=== PATIENT | female | born 1960 | race Caucasian/White ===

== ENCOUNTER 2017-09-26 18:11 | Inpatient (IN) | payer OTHER ==
[2017-09-26] MEDS ORDERED: ACETAMINOPHEN 325 MG TAB PO (19:30)
[2017-09-26] MEDS ORDERED: NACL 0.9% 3 ML SYG IV (19:30)
[2017-09-26] MEDS ORDERED: hydrALAzine 20 MG INJ IV (19:30)
[2017-09-26] MEDS ORDERED: VANCOMYCIN IV PER PHARMACY XX (19:30)
[2017-09-26] MEDS ORDERED: NITROGLYCERIN (SL) 0.4 MG TAB SL (19:30)
[2017-09-26] MEDS ORDERED: ALBUTEROL/IPRATROPIUM (NEB) 3 ML AMP HHN (19:30)
[2017-09-26] MEDS ORDERED: NA PHOSPHATE/BIPHOS 133 ML ENEMA PR (19:30)
[2017-09-26] MEDS: ONDANSETRON 4 MG INJ IV (20:25)
[2017-09-26] MEDS: SOD CHLORIDE 0.9% 1,000 ML IV (20:25)
[2017-09-26] MEDS: HEPARIN 5,000 UNIT/0.5 ML VIAL SC (20:27)
[2017-09-26] MEDS: HYDROCODONE/APAP (5/325) TAB PO (20:28)
[2017-09-26 20:38] LABS: INR 1.12; PROTIME 14.6 Sec (11.9-14.9); PT RATIO 1.1
[2017-09-26 20:39] LABS: PARTIAL THROMBOPLASTIN TIME 40.4 Sec (25.0-35.0)
[2017-09-26 20:52] LABS: FREE T4 (FREE THYROXINE) 1.15 ng/dl (0.64-1.79)
[2017-09-26] MEDS: VANCOMYCIN 1.5 GM in SOD CHLORIDE 0.9% 250 ML IVPB (23:17)
[2017-09-27] MEDS: PIPER-TAZO 3.375 GM IV (PMX) 100 ML IVPB ×4 (02:26→17:45)
[2017-09-27] MEDS ORDERED: VITAMIN A & D 5 GM OINT PACKET TOP (02:33)
[2017-09-27] MEDS: ONDANSETRON 4 MG INJ IV (02:36)
[2017-09-27] MEDS ORDERED: GLUCAGON 1 MG INJ IM (03:30)
[2017-09-27] MEDS ORDERED: GLUCOSE GEL 15 GRAM TUBE PO ×2 (03:30)
[2017-09-27] MEDS ORDERED: GLUCOSE GEL 15 GRAM TUBE BUCCAL (03:30)
[2017-09-27] MEDS ORDERED: DEXTROSE 50% 50 ML SYRINGE IV ×2 (03:30)
[2017-09-27] MEDS: SOD CHLORIDE 0.9% 1,000 ML IV ×2 (05:04→16:10)
[2017-09-27 05:40] LABS: ADD MAN DIFF? NO
[2017-09-27 05:45] LABS: BASOPHILS % 0.4 % (0.0-2.0); EOSINOPHILS % 0.4 % (0.0-7.0); HEMATOCRIT 30.7 % (37.0-47.0); HEMOGLOBIN 9.3 g/dl (12.0-16.0); LYMPHOCYTES % 14.3 % (15.0-51.0); MEAN CORPUSCULAR HEMOGLOBIN 22.6 pg (29.0-33.0); MEAN CORPUSCULAR HGB CONC 30.3 g/dl (32.0-37.0); MEAN CORPUSCULAR VOLUME 74.5 fl (82.0-101.0); MEAN PLATELET VOLUME 11.5 fl (7.4-10.4); MONOCYTE # 1.2 10^3/ul (0.3-0.9); MONOCYTES % 15.8 % (0.0-11.0); NEUTROPHILS % 68.8 % (39.0-77.0); PLATELET COUNT 221 10^3/UL (140-415); RED BLOOD COUNT 4.12 10^6/ul (4.20-5.40); RED CELL DISTRIBUTION WIDTH 17.9 % (11.5-14.5)
[2017-09-27 05:45] LABS: WHITE BLOOD COUNT 7.3 10^3/ul (4.8-10.8)
[2017-09-27 05:58] LABS: HEMOGLOBIN A1C 5.8 % (0-5.9)
[2017-09-27 06:06] LABS: ALANINE AMINOTRANSFERASE 148 IU/L (13-69); ALBUMIN 3.2 g/dl (3.3-4.9); ALKALINE PHOSPHATASE 200 IU/L (42-121); ANION GAP 14 (8-16); ASPARTATE AMINO TRANSFERASE 114 IU/L (15-46); BILIRUBIN,INDIRECT 0.1 mg/dl (0-1.1); BILIRUBIN,TOTAL 0.1 mg/dl (0.2-1.3); BLOOD UREA NITROGEN 7 mg/dl (7-20); CALCIUM 8.7 mg/dl (8.4-10.2); CARBON DIOXIDE 24 mmol/L (21-31); CHLORIDE 110 mmol/L (97-110); CHOL/HDL RATIO 3.2 RATIO; CHOLESTEROL 141 mg/dl (100-200); CREATININE 0.64 mg/dl (0.44-1.00); GLUCOSE 101 mg/dl (70-220); HDL CHOLESTEROL 44 mg/dl (37-92); LDL CHOLESTEROL,CALCULATED 73 mg/dl; PHOSPHORUS 3.3 mg/dl (2.5-4.9); SODIUM 144 mmol/L (135-144); TOTAL PROTEIN 6.1 g/dl (6.1-8.1); TRIGLYCERIDES 118 mg/dl (0-149)
[2017-09-27] MEDS: INSULIN ASPART [NOVOLOG] 3 ML PEN SC ×3 (08:00→17:45)
[2017-09-27] MEDS: HEPARIN 5,000 UNIT/0.5 ML VIAL SC ×2 (09:00→20:55)
[2017-09-27] MEDS: VANCOMYCIN 1 GM 250 ML IVPB ×2 (11:03→23:08)
[2017-09-27 18:58] LABS: HAAIG REFLEX REFLEX FILED
[2017-09-27 19:51] LABS: HEPATITIS B SURFACE ANTIGEN NEGATIVE (NEGATIVE)
[2017-09-27 20:10] LABS: HEPATITIS B CORE ANTIBODY NEGATIVE (NEGATIVE); HEPATITIS C VIRAL ANTIBODY NEGATIVE (NEGATIVE)
[2017-09-27] MEDS ORDERED: VANCOMYCIN 1.25 GM in SOD CHLORIDE 0.9% 250 ML IVPB (21:00)
[2017-09-27] MEDS: morphine 2 MG INJ IV (22:27)
[2017-09-27] MEDS: MAGNESIUM HYDROXIDE 30ML CUP PO (23:08)
[2017-09-28] MEDS: SOD CHLORIDE 0.9% 1,000 ML IV ×4 (01:04→21:04)
[2017-09-28] MEDS ORDERED: ACCU-CHEK XX (02:00)
[2017-09-28] MEDS: PIPER-TAZO 3.375 GM IV (PMX) 100 ML IVPB ×5 (02:27→18:20)
[2017-09-28] MEDS: DOCUSATE SODIUM 100 MG CAP PO (02:27)
[2017-09-28 05:50] LABS: ADD MAN DIFF? NO
[2017-09-28 05:57] LABS: WHITE BLOOD COUNT 5.4 10^3/ul (4.8-10.8)
[2017-09-28 05:57] LABS: BASOPHILS % 0.6 % (0.0-2.0); EOSINOPHILS # 0.1 10^3/ul (0.0-0.5); EOSINOPHILS % 1.5 % (0.0-7.0); HEMATOCRIT 29.9 % (37.0-47.0); LYMPHOCYTES # 1.3 10^3/ul (0.8-2.9); LYMPHOCYTES % 23.9 % (15.0-51.0); MEAN CORPUSCULAR HEMOGLOBIN 22.3 pg (29.0-33.0); MEAN CORPUSCULAR HGB CONC 30.1 g/dl (32.0-37.0); MEAN PLATELET VOLUME 11.2 fl (7.4-10.4); MONOCYTE # 1.1 10^3/ul (0.3-0.9); MONOCYTES % 19.3 % (0.0-11.0); NEUTROPHILS % 54.5 % (39.0-77.0); PLATELET COUNT 245 10^3/UL (140-415); RED BLOOD COUNT 4.04 10^6/ul (4.20-5.40)
[2017-09-28 06:21] LABS: IRON 45 ug/dl (35-150)
[2017-09-28 06:30] LABS: % IRON SATURATION 15 % SAT (22-52); TOTAL IRON BINDING CAPACITY 302 ug/dl (241-421)
[2017-09-28 06:52] LABS: ALANINE AMINOTRANSFERASE 133 IU/L (13-69); ALBUMIN 3.2 g/dl (3.3-4.9); ALBUMIN/GLOBULIN RATIO 1.06; ALKALINE PHOSPHATASE 241 IU/L (42-121); ANION GAP 12 (8-16); ASPARTATE AMINO TRANSFERASE 79 IU/L (15-46); BILIRUBIN,INDIRECT 0.2 mg/dl (0-1.1); BILIRUBIN,TOTAL 0.2 mg/dl (0.2-1.3); BLOOD UREA NITROGEN 11 mg/dl (7-20); CALCIUM 8.9 mg/dl (8.4-10.2); CARBON DIOXIDE 25 mmol/L (21-31); CHLORIDE 112 mmol/L (97-110); CREATININE 0.64 mg/dl (0.44-1.00); GLUCOSE 96 mg/dl (70-220); POTASSIUM 4.1 mmol/L (3.5-5.1); SODIUM 145 mmol/L (135-144); TOTAL PROTEIN 6.2 g/dl (6.1-8.1)
[2017-09-28 06:56] LABS: FERRITIN 15.5 ng/ml (11.1-264.0)
[2017-09-28] MEDS: HEPARIN 5,000 UNIT/0.5 ML VIAL SC ×2 (09:02→23:29)
[2017-09-28 11:11] LABS: VANCOMYCIN,TROUGH 9.1 ug/ml (10.0-20.0)
[2017-09-28] MEDS: VANCOMYCIN 1 GM 250 ML IVPB (11:59)
[2017-09-28] MEDS: morphine 2 MG INJ IV ×2 (12:09→17:14)
[2017-09-28] MEDS ORDERED: VITAMIN A & D 5 GM OINT PACKET TOP (15:38)
[2017-09-28 16:55] LABS: ACETAMINOPHEN < 10.0 ug/ml (10.0-30.0)
[2017-09-28] MEDS: LORAZEPAM 2 MG INJ IV (20:25)
[2017-09-28] MEDS: VANCOMYCIN 1.5 GM in SOD CHLORIDE 0.9% 250 ML IVPB (23:28)
[2017-09-29] MEDS: SOD CHLORIDE 0.9% 1,000 ML IV (03:29)
[2017-09-29] MEDS: DOCUSATE SODIUM 100 MG CAP PO (05:54)
[2017-09-29] MEDS: PIPER-TAZO 3.375 GM IV (PMX) 100 ML IVPB ×2 (05:54→11:27)
[2017-09-29 06:47] LABS: ADD MAN DIFF? NO
[2017-09-29 06:53] LABS: BASOPHIL # 0.1 10^3/ul (0.0-0.1); BASOPHILS % 0.8 % (0.0-2.0); EOSINOPHILS # 0.1 10^3/ul (0.0-0.5); EOSINOPHILS % 2.3 % (0.0-7.0); HEMATOCRIT 35.3 % (37.0-47.0); HEMOGLOBIN 10.5 g/dl (12.0-16.0); LYMPHOCYTES # 1.5 10^3/ul (0.8-2.9); LYMPHOCYTES % 24.9 % (15.0-51.0); MEAN CORPUSCULAR HEMOGLOBIN 22.2 pg (29.0-33.0); MEAN CORPUSCULAR HGB CONC 29.7 g/dl (32.0-37.0); MEAN CORPUSCULAR VOLUME 74.6 fl (82.0-101.0); MEAN PLATELET VOLUME 11.5 fl (7.4-10.4); MONOCYTE # 0.7 10^3/ul (0.3-0.9); MONOCYTES % 11.9 % (0.0-11.0); NEUTROPHIL # 3.7 10^3/ul (1.6-7.5); NEUTROPHILS % 59.8 % (39.0-77.0); PLATELET COUNT 327 10^3/UL (140-415); RED BLOOD COUNT 4.73 10^6/ul (4.20-5.40)
[2017-09-29 06:53] LABS: WHITE BLOOD COUNT 6.2 10^3/ul (4.8-10.8)
[2017-09-29 07:15] LABS: ALANINE AMINOTRANSFERASE 151 IU/L (13-69); ALBUMIN 3.8 g/dl (3.3-4.9); ALBUMIN/GLOBULIN RATIO 1.15; ALKALINE PHOSPHATASE 276 IU/L (42-121); ANION GAP 16 (8-16); ASPARTATE AMINO TRANSFERASE 94 IU/L (15-46); BILIRUBIN,INDIRECT 0.1 mg/dl (0-1.1); BILIRUBIN,TOTAL 0.1 mg/dl (0.2-1.3); BLOOD UREA NITROGEN 13 mg/dl (7-20); CALCIUM 9.9 mg/dl (8.4-10.2); CARBON DIOXIDE 27 mmol/L (21-31); CHLORIDE 107 mmol/L (97-110); CREATININE 0.57 mg/dl (0.44-1.00); GLUCOSE 98 mg/dl (70-220); SODIUM 146 mmol/L (135-144); TOTAL PROTEIN 7.1 g/dl (6.1-8.1)
[2017-09-29] MEDS: HEPARIN 5,000 UNIT/0.5 ML VIAL SC (09:10)
[2017-09-29] MEDS: VANCOMYCIN 1.5 GM in SOD CHLORIDE 0.9% 250 ML IVPB (12:08)
[2017-09-29] MEDS: ONDANSETRON 4 MG INJ IV (12:44)
[2017-09-29] MEDS: MAGNESIUM HYDROXIDE 30ML CUP PO (12:51)
[2017-09-29] MEDS ORDERED: VITAMIN A & D 5 GM OINT PACKET TOP (16:03)
== END 2017-09-29 16:23 | disposition home or self-care (01) | DRG 689 ==
LOC: PP2 18:11
PROVIDERS: Internal Medicine
DX: N39.0 Urinary tract infection, site not specified (principal); J18.9 Pneumonia, unspecified organism; D50.9 Iron deficiency anemia, unspecified; N81.4 Uterovaginal prolapse, unspecified; R74.0 Nonspecific elevation of levels of transaminase and lactic acid dehydrogenase [LDH]; Z90.5 Acquired absence of kidney
CPT/HCPCS: 74181; 80053; 80061; 80202; 80306; 82728; 82962; 83036; 83540; 83735; 84080; 84100; 84439; 84443; 85025; 85610; 85730; 86704; 86709; 86803; 87086; 87340

== ENCOUNTER 2017-10-05 15:51 | Outpatient (CLI) | payer OTHER | END 2017-10-05 17:00 | disposition home or self-care (01) | LOC: DCC 17:00 | DX: J18.9 Pneumonia, unspecified organism (principal); N39.0 Urinary tract infection, site not specified; D64.9 Anemia, unspecified; N81.4 Uterovaginal prolapse, unspecified; E11.8 Type 2 diabetes mellitus with unspecified complications; E78.5 Hyperlipidemia, unspecified; Z90.5 Acquired absence of kidney | CPT/HCPCS: G0463 ==